=== PATIENT | male | born 1950 | race Caucasian/White ===

== ENCOUNTER → 2017-08-31 | Outpatient (REF) | payer MEDICARE ==
[2017-08-31 16:51] LABS: BASO # 0.1 10^3/uL (0.0-0.2); BASO % 1.1 % (0.0-1.0); EOS # 0.1 10^3/uL (0.0-0.50); EOS % 1.6 % (0.0-3.0); HEMATOCRIT 53.4 % (42.0-52.0); HEMOGLOBIN 17.8 g/dl (13.5-17.5); LYMPH # 2.3 10^3/uL (1.5-4.5); LYMPH % 28.5 % (24.0-44.0); MEAN CORPUSCULAR HEMOGLOBIN 33.5 pg (27.0-33.0); MEAN CORPUSCULAR HGB CONC 33.3 g/dl (32.0-36.5); MEAN CORPUSCULAR VOLUME 100.4 fl (80.0-96.0); MONO # 0.8 10^3/uL (0.0-0.8); MONO % 9.8 % (0.0-5.0); NEUTROPHILS # 4.6 10^3/uL (1.8-7.7); PLATELET COUNT, AUTOMATED 298 10^3/uL (150-450); RED BLOOD COUNT 5.32 10^6/uL (4.30-6.10); RED CELL DISTRIBUTION WIDTH 12.3 % (11.5-14.5); WHITE BLOOD COUNT 7.9 10^3/uL (4.0-10.0)
[2017-08-31 17:04] LABS: ESTIMATED AVERAGE GLUCOSE 108 MG/DL (60-110); HEMOGLOBIN A1c 5.4 %
[2017-08-31 17:13] LABS: ALBUMIN 3.8 GM/DL (3.2-5.2); ALBUMIN/GLOBULIN RATIO 0.97 (1.00-1.93); ALKALINE PHOSPHATASE 67 U/L (45-117); ALT/SGPT 29 U/L (12-78); ANION GAP 9 MEQ/L (8-16); AST/SGOT 15 U/L (7-37); BILIRUBIN,TOTAL 0.6 MG/DL (0.2-1.0); BLOOD UREA NITROGEN 12 MG/DL (7-18); CALCIUM LEVEL 9.2 MG/DL (8.8-10.2); CARBON DIOXIDE LEVEL 28 MEQ/L (21-32); CHLORIDE LEVEL 102 MEQ/L (98-107); CHOLESTEROL LEVEL 269 MG/DL (<200); CHOLESTEROL RISK RATIO 5.075 (<5); CREATININE FOR GFR 0.98 MG/DL (0.70-1.30); GLOMERULAR FILTRATION RATE > 60.0 (>49); GLUCOSE, FASTING 78 MG/DL (70-100); HDL CHOLESTEROL 53 MG/DL (>40); LDL CHOLESTEROL 155.2 MG/DL (<100); NON-HDL-C 216 MG/DL; POTASSIUM SERUM 4.8 MEQ/L (3.5-5.1); SODIUM LEVEL 139 MEQ/L (136-145); TOTAL PROTEIN 7.7 GM/DL (6.4-8.2); TRIGLYCERIDES LEVEL 304 MG/DL (<150)
== END ==
LOC: M SFHCLERA 10:13
DX: I10 Essential (primary) hypertension (principal); E66.9 Obesity, unspecified; Z72.0 Tobacco use; Z12.11 Encounter for screening for malignant neoplasm of colon
CPT/HCPCS: 84443

== ENCOUNTER → 2017-09-28 | Outpatient (REF) | payer MEDICARE ==
[2017-09-28 12:16] LABS: MAU/CREAT RATIO 7.9 MCG/MG (0.0-30.0)
== END ==
LOC: M SFHCLERA 11:22
DX: I10 Essential (primary) hypertension (principal)
CPT/HCPCS: 82043

== ENCOUNTER → 2018-08-18 | Outpatient (REF) | payer MEDICARE, OTHER ==
[2018-08-18 18:19] LABS: CHOLESTEROL RISK RATIO 3.362 (<5)
== END ==
LOC: M SFHCLERA 14:54
PROVIDERS: ATTEND Family Medicine
DX: E78.5 Hyperlipidemia, unspecified (principal)
CPT/HCPCS: 80061; G0463

== ENCOUNTER → 2018-08-25 | Outpatient (CLI) | payer MEDICARE ==
--- NOTE | 2018-08-25 10:38 | REP ---
ULTRASOUND ABDOMINAL AORTA: Real time sonographic evaluation of the abdominal aorta performed. The distal abdominal aorta could not be visualized due to overlying bowel gas, nor could the common iliac arteries. No aneurysm was seen at the proximal abdominal aorta just below the diaphragms which measures 2.5 cm in maximum AP dimension. There is also no evidence of aneurysm at the level of the renal arteries with AP diameter 2.1 cm. IMPRESSION: No sonographic evidence of aneurysm of the proximal abdominal aorta. However, distal abdominal aorta could not be visualized due to overlying bowel gas. Electronically Signed by Abdon Rivero MD 08/28/2018 07:02 P
--- NOTE | 2018-08-25 10:45 | REP ---
BILATERAL LOWER EXTREMITY DUPLEX DOPPLER ARTERIAL ULTRASOUND: Real-time ultrasound evaluation and duplex Doppler interrogation is performed of bilateral lower extremity arterial systems. There is diffuse calcific plaque bilaterally. The vessels are non compressible and BRAYAN could not be performed. There is elevated peak systolic velocity in the proximal aspect of the right superficial femoral artery suggesting mild stenosis. There is also a suggestion of mild stenosis of the left profunda artery and distal left superficial femoral artery. There is severe stenosis of the left tibioperoneal trunk with significantly elevated peak systolic velocity of 457 cm/s. There are diffuse triphasic waveforms noted except for biphasic waveforms in the distal right anterior and posterior tibial arteries and throughout the left anterior and posterior tibial arteries. Right Peak Left Peak Systolic Velocity Systolic velocity Common femoral artery 87.8 cm/s 108.0 cm/s Profunda 99.9 cm/s 132.0 cm/s Proximal SFA 203.0 cm/s 84.3 cm/s Mid SFA 96.0 cm/s 78.6 cm/s Distal SFA 89.4 cm/s 112.0 cm/s Popliteal 133.0 cm/s 65.4 cm/s Proximal PORTER 89.3 cm/s 60.0 cm/s Tibial peroneal trunk 98.8 cm/s 457.0 cm/s Proximal CITY ASSESSOR 66.6 cm/s 31.5 cm/s Distal CITY ASSESSOR 71.3 cm/s 35.6 cm/s Distal PORTER 30.7 cm/s 46.0 cm/s IMPRESSION: Suspect mild stenosis proximal right superficial femoral artery and left profunda and left distal superficial femoral artery. Severe stenosis left tibioperoneal trunk. Electronically Signed by Abdon Rivero MD 08/28/2018 07:04 P
== END ==
LOC: M RAD 07:27
PROVIDERS: ATTEND Family Medicine
DX: M79.605 Pain in left leg (principal); M79.604 Pain in right leg; Z13.6 Encounter for screening for cardiovascular disorders; I77.1 Stricture of artery

== ENCOUNTER → 2018-10-04 | Outpatient (CLI) | payer MEDICARE ==
[~2018-10-04] MED LIST: AMLO10TA5; ASPI81TA85 PO; HEPARIN 1,000 UNITS/ML 10ML VIAL (FOR RADIOLOGY& DIALYSIS ONLY) As Ordered ONE; ISOVUE-300 61% 50ML VIAL (Q9967) As Ordered ONE; LIDOCAINE 2% MDV 20 ML VIAL As Ordered ONE; LISI40TA; METO50TA7; MIDAZOLAM INJ 2 MG/2 ML VIAL (J2250) As Ordered ONE; ROSU5TAB5; fentaNYL 100 MCG/2 ML INJECTION (J3010) As Ordered ONE
[2018-10-04 07:11] LABS: HEMATOCRIT 48.5 % (42.0-52.0); MEAN CORPUSCULAR HEMOGLOBIN 32.5 pg (27.0-33.0); MEAN CORPUSCULAR VOLUME 98.4 fl (80.0-96.0); PLATELET COUNT, AUTOMATED 343 10^3/uL (150-450); RED BLOOD COUNT 4.93 10^6/uL (4.30-6.10); WHITE BLOOD COUNT 9.6 10^3/uL (4.0-10.0)
[2018-10-04 07:37] LABS: BLOOD UREA NITROGEN 17 MG/DL (7-18); CARBON DIOXIDE LEVEL 25 MEQ/L (21-32); CHLORIDE LEVEL 103 MEQ/L (98-107); CREATININE FOR GFR 1.01 MG/DL (0.70-1.30); GLOMERULAR FILTRATION RATE > 60.0 (>49); GLUCOSE, FASTING 91 MG/DL (70-100); POTASSIUM SERUM 6.3 MEQ/L (3.5-5.1); SODIUM LEVEL 137 MEQ/L (136-145)
--- NOTE | 2018-10-04 09:36 | ROOPDOC ---
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 Ultrasound-guided access left common femoral artery 2. Aortoiliofemoral arteriogram with right lower extremity runoff through selection of right superficial femoral artery 3. Angioplasty in the right superficial femoral artery with 6 x 100 [place] balloon 4. Angioplasty of the right popliteal artery with 6 x 100 [place] balloon 5. Selection arteriograms of the right anterior tibial artery and dorsal pedis arteries 6. 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 Completion arteriograms right lower extremity 8. Left lower extremity runoff arteriogram 9. Mynx closure left common femoral artery SURGEON: Kait Jones MD ANESTHESIA: 10 mL 1% lidocaine local anesthesia. Moderate intravenous conscious sedation was supervised by Dr. Jones. The patient was independently monitored by a registered nurse assigned at the Department of radiology using automated blood pressure, EKG, and pulse oximetry. The detailed conscious sedation record is permanently started in the hospital information system. The following is the conscious sedation record: Start time 07:40, stop time 08:59, Versed 1 mg IV, fentanyl 50 g IV. The patient tolerated sedation well with no complications. Contrast: Isovue 300, 56 mL. Heparin: 5000 units INDICATION FOR PROCEDURE: Mr. Vega is a very pleasant 67-year-old gentleman with atherosclerosis of the unga vessels and lifestyle limiting claudication. In addition to encouraging ambulation and smoking cessation, we discussed the options including the risks benefits and alternatives to an arteriogram and potential intervention. Despite findings on his noninvasive duplex arterial study suggesting greater left lower extremity arterial disease than right, the patient is more symptomatic on the right and therefore we have elected to proceed with the right lower extremity arteriogram and intervention first. After extensive counseling, informed consent was obtained. All questions were answered. INTERPRETATION: 1. The distal aorta, common iliac arteries, hypogastric's, and external iliac arteries are widely patent. 2. The common femoral vessels and profundus are widely patent. 3. The proximal right SFA has a 30% stenosis along the proximal 7 cm, with mild flow limitation. 20% residual stenosis present after angioplasty, but no flow limitation noted. No dissection or extravasation noted after angioplasty. 4. The mid distal right SFA is widely patent. 5. There is an 80% mid right popliteal stenosis focally, with some mild stenosis proximal to this throughout the popliteal artery. After angioplasty, there was less than 10% residual stenosis. Some contrast passed beneath the angioplasty plaque and out into a genicular branch, and this branch was not present on pre- angioplasty imaging. I do not see any flow-limiting dissection despite some contrast flowing behind the plaque. No other extravasation or embolization noted after angioplasty and flow was brisk. 6. The right tibioperoneal trunk and peroneal and posterior tibial arteries are widely patent and have good runoff to the foot. The posterior tibial arteries the main runoff to the foot. 7. The anterior tibial artery on the right occludes 2 cm from its origin and reconstitutes at the ankle with runoff into the dorsal pedis artery. We were successful to cross the chronic total occlusion and confirmed we are in the true lumen within the anterior tibial artery as well as the dorsal pedis artery with selection views. After angioplasty, we had a patent vessel with runoff to the foot, and no visible dissection, extravasation, or embolization. 8. On the left lower extremity, the common femoral artery, profunda, and SFA are patent with brisk flow. There is a focal 90-95% stenosis in the popliteal artery with some surrounding mild irregular plaque. The patient then has 3 vessel runoff, but has some focal areas of near occlusion in the proximal anterior tibial artery with distal reconstitution. The main runoff to the foot is a posterior tibial artery, but all 3 vessels are patent. PROCEDURE: The patient was brought to the angiographic suite in stable condition and placed supine on the fluoroscopic table. His bilateral groins were prepped and draped in a sterile fashion. A timeout was performed. Sedation was administered without claudication. An ultrasound was used to guide access to the left common femoral artery over the femoral head. A wire was passed through this access under fluoroscopic guidance and a micro-sheath was placed. Stiff Glidewire was used to access the suprarenal aorta and aorto iliofemoral arteriogram was performed. No significant was stenosis was noted in this area. We then went up and over the bifurcation with a stiff Glidewire an Omni flushed catheter. Over the wire the catheter was advanced into the distal femoral artery. 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 The other vessels are patent with mild plaque noted. Please see above interpretation. We then navigated R wire under fluoroscopy into the distal superficial femoral artery and placed a long 6 Wolof sheath up and over the bifurcation and flushed the sheath with saline. The proximal SFA was angiopl astied with a 6 x 100 [place] balloon, which is a little undersized for this vessel, but our goal was simply to smooth out the plaque and prevent any flow hesitation. After three-minute inflations, there was still 20% stenosis, but no limitation of flow. We then advanced the balloon across the popliteal artery and angioplastied for 3 minutes at a low atmosphere inflation. Following this, there is widely patent inflow through the popliteal artery with a little bit of flow. Behind the angioplasty plaque into a genicular branch. Since this was not flow- limiting and was filling a branch, we did not really angioplasty to try to eliminate that retro-plaque flow. It was not flow-limiting, and there was no extravasation. We then navigated the Glidewire into the origin of the anterior tibial artery. We attempted to cross this with an O35 [place] in the Glidewire, but we were only able to pass the [place] correction through the anterior tibial artery. We confirmed we are in the true lumen with a quick arteriogram, and then exchanged R wire for an O18 wire. We then exchanged the [place] for an O18 [place]. It was challenging, but eventually we were able to cross the entire anterior tibial artery and confirmed we're in the true lumen of the dorsal pedis artery with another quick arteriogram. We then angioplastied over the O18 wire with a 2 x 2 20 Aris balloon for three-minute inflations along the length of the vessel. Following this, there was still some irregular plaque within the vessel but it was patent with in-line flow to the foot. No dissections spasm embolization or extravasation were noted. With 3 vessel runoff to the foot, we concluded her procedure. We exchanged the sheath for short 6 Wolof sheath on the left. To prepare for next procedure on the other extremity, quick arteriogram was performed. The main findings on the left with a severe stenosis of the popliteal artery and some mild anterior tibial artery stenosis. We will address this on a separate procedure. We then removed the wire and deployed a minx closure device under fluoroscopic guidance the left common femoral artery. Following this, pressure was held for 10 minutes for good hemostasis. The patient was then transferred back to recovery in stable condition. ESTIMATED BLOOD LOSS: Approximately 5 mL. COMPLICATIONS: None PLAN: The patient will remain on bedrest for 4 hours postprocedure and then discharge home is hemodynamically stable and standard criteria are met. We will see him back in follow-up and plan a procedure for left lower extremity revascul arization in a few weeks. KAIT JONES MD Oct 04, 2018 09:36
[2018-10-04 12:51] VITALS: BP 176/94
== END ==
LOC: M IRPRO 06:41
PROVIDERS: ATTEND Surgery Vascular Surgery
DX: I70.213 Atherosclerosis of native arteries of extremities with intermittent claudication, bilateral legs (principal); I10 Essential (primary) hypertension; E78.5 Hyperlipidemia, unspecified; Z79.899 Other long term (current) drug therapy; Z79.82 Long term (current) use of aspirin
CPT/HCPCS: 37224; 37228; 75716; 75774; 80048; 85027; C1725; C1760; C1769; C1887; C1894; J2250; J3010; Q9967

== ENCOUNTER → 2018-10-05 | Outpatient (REF) | payer MEDICARE, OTHER ==
[~2018-10-05] MED LIST changes: -HEPARIN 1,000 UNITS/ML 10ML VIAL (FOR RADIOLOGY& DIALYSIS ONLY) As Ordered ONE; -ISOVUE-300 61% 50ML VIAL (Q9967) As Ordered ONE; -LIDOCAINE 2% MDV 20 ML VIAL As Ordered ONE; -MIDAZOLAM INJ 2 MG/2 ML VIAL (J2250) As Ordered ONE; -fentaNYL 100 MCG/2 ML INJECTION (J3010) As Ordered ONE
[2018-10-05 12:01] LABS: BLOOD UREA NITROGEN 13 MG/DL (7-18); CALCIUM LEVEL 9.6 MG/DL (8.8-10.2); CARBON DIOXIDE LEVEL 29 MEQ/L (21-32); CHLORIDE LEVEL 102 MEQ/L (98-107); CREATININE FOR GFR 0.99 MG/DL (0.70-1.30); GLOMERULAR FILTRATION RATE > 60.0 (>49); GLUCOSE, FASTING 89 MG/DL (70-100); POTASSIUM SERUM 4.7 MEQ/L (3.5-5.1); SODIUM LEVEL 137 MEQ/L (136-145)
== END ==
LOC: M SFHCLERA 09:41
PROVIDERS: ATTEND Family Medicine
DX: E87.5 Hyperkalemia (principal)

== ENCOUNTER → 2024-03-10 | Outpatient (REF) | payer MEDICARE, OTHER ==
[~2024-03-10] MED LIST changes: -AMLO10TA5; +AMLO1TAB25; -ASPI81TA85 PO; +ASPI81TA86 PO; -LISI40TA; +LISI40TA4; +ROSU5TAB49; -ROSU5TAB5
[2024-03-10 13:51] LABS: CREATININE, URINE 167.9 MG/DL
[2024-03-10 13:52] LABS: MAU/CREAT RATIO 54.1 MCG/MG (0.0-30.0)
[2024-03-10 18:37] LABS: BASO # 0.1 10^3/uL (0.0-0.2); BASO % 1.2 % (0.0-1.0); EOS # 0.1 10^3/uL (0.0-0.5); EOS % 2.1 % (0.0-3.0); HEMATOCRIT 56.9 % (42.0-52.0); HEMOGLOBIN 18.9 g/dl (13.5-17.5); LYMPH # 1.7 10^3/uL (1.5-5.0); LYMPH % 24.4 % (24.0-44.0); MEAN CORPUSCULAR HEMOGLOBIN 33.9 pg (27.0-33.0); MEAN CORPUSCULAR HGB CONC 33.2 g/dl (32.0-36.5); MONO # 0.6 10^3/uL (0.0-0.8); MONO % 8.1 % (2.0-8.0); NEUTROPHILS # 4.3 10^3/uL (1.5-8.5); NEUTROPHILS % 63.6 % (36.0-66.0); PLATELET COUNT, AUTOMATED 265 10^3/uL (150-450); PSA SCREENING 1.25 NG/ML (< 4.00); RED BLOOD COUNT 5.58 10^6/uL (4.30-6.10); WHITE BLOOD COUNT 6.8 10^3/uL (4.0-10.0)
[2024-03-10 18:41] LABS: ALBUMIN 3.9 G/DL (3.2-5.2); ALKALINE PHOSPHATASE 80 U/L (40-129); ALT/SGPT 21 U/L (7.0-40); AST/SGOT 17 U/L (<34); BILIRUBIN,TOTAL 0.7 MG/DL (0.3-1.2); BLOOD UREA NITROGEN 10 MG/DL (9-23); CALCIUM LEVEL 9.8 MG/DL (8.3-10.6); CARBON DIOXIDE LEVEL 28 MMOL/L (20-31); CHLORIDE LEVEL 101 MMOL/L (98-107); CHOLESTEROL LEVEL 285 MG/DL (<200); CHOLESTEROL RISK RATIO 5.97 (<5); CREATININE FOR GFR 0.85 MG/DL (0.70-1.30); GLOMERULAR FILTRATION RATE > 60.0 (>42); GLUCOSE, FASTING 79 MG/DL (74-106); HDL CHOLESTEROL 47.7 MG/DL (>40); LDL CHOLESTEROL 174.1 MG/DL (<100); NON-HDL-C 237.3 MG/DL; POTASSIUM SERUM 5.9 MMOL/L (3.5-5.1); SODIUM LEVEL 136 MMOL/L (136-145); THYROID STIMULATING HORMONE 2.484 uIU/ML (0.55-4.78); TOTAL PROTEIN 8.2 G/DL (5.7-8.2); TRIGLYCERIDES LEVEL 316 MG/DL (<150)
[2024-03-10 18:43] LABS: TOTAL 25(OH) VITAMIN D 7.5 NG/ML (20.0-100.0); VITAMIN B12 LEVEL 264 PG/ML (211-911)
[2024-03-10 18:53] LABS: HEMOGLOBIN A1c 4.9 % (4.0-6.0)
[2024-03-10 19:15] LABS: HEPATITIS C VIRUS ABY INDEX < 0.02 INDEX (<0.8); HIV 1&2 SCREEN NEGATIVE (NEGATIVE)
== END ==
LOC: M LAB REF 12:40
PROVIDERS: ATTEND Physician Assistant
DX: E55.9 Vitamin D deficiency, unspecified (principal); I10 Essential (primary) hypertension; E66.9 Obesity, unspecified; Z12.5 Encounter for screening for malignant neoplasm of prostate; Z72.89 Other problems related to lifestyle; Z79.899 Other long term (current) drug therapy; Z11.3 Encounter for screening for infections with a predominantly sexual mode of transmission
CPT/HCPCS: 80053; 80061; 82043; 82306; 82607; 82746; 83036; 84443; 85025; 86780; 86803; 87389; G0103

== ENCOUNTER → 2024-03-22 | Outpatient (REF) | payer MEDICARE ==
[2024-03-22 17:35] LABS: BLOOD UREA NITROGEN 9 MG/DL (9-23); CALCIUM LEVEL 9.8 MG/DL (8.3-10.6); CARBON DIOXIDE LEVEL 29 MMOL/L (20-31); CHLORIDE LEVEL 102 MMOL/L (98-107); CREATININE FOR GFR 0.88 MG/DL (0.70-1.30); GLOMERULAR FILTRATION RATE > 60.0 (>42); GLUCOSE, FASTING 90 MG/DL (74-106); POTASSIUM SERUM 5.2 MMOL/L (3.5-5.1); SODIUM LEVEL 135 MMOL/L (136-145)
== END ==
LOC: M LAB REF 16:40
PROVIDERS: ATTEND Physician Assistant
DX: I10 Essential (primary) hypertension (principal)

== ENCOUNTER → 2024-04-13 | Outpatient (CLI) | payer MEDICARE ==
[2024-04-13 16:28] LABS: FREE T4 1.03 NG/DL (0.89-1.76); THYROID STIMULATING HORMONE 2.222 uIU/ML (0.55-4.78)
[2024-04-13 16:29] LABS: FOLATE 12.08 NG/ML (>5.4)
== END ==
LOC: M LAB 14:56
PROVIDERS: ATTEND Physician Assistant
DX: R25.1 Tremor, unspecified (principal)

== ENCOUNTER → 2024-08-28 | Outpatient (CLI) | payer MEDICARE ==
[~2024-08-28] MED LIST changes: +LISI40TA10; -LISI40TA4
[2024-08-28 12:01] LABS: VITAMIN B12 LEVEL 307.0 PG/ML (211-911)
== END ==
LOC: M LAB 09:48
PROVIDERS: ATTEND Psychiatry & Neurology Neurology
DX: E53.8 Deficiency of other specified B group vitamins (principal); E53.1 Pyridoxine deficiency; R25.1 Tremor, unspecified; R41.89 Other symptoms and signs involving cognitive functions and awareness

== ENCOUNTER → 2024-12-13 | Outpatient (CLI) | payer MEDICARE ==
[2024-12-13 11:31] LABS: BASO # 0.1 10^3/uL (0.0-0.2); BASO % 1.0 % (0.0-1.0); EOS # 0.4 10^3/uL (0.0-0.5); EOS % 3.5 % (0.0-3.0); LYMPH # 2.1 10^3/uL (1.5-5.0); LYMPH % 20.0 % (24.0-44.0); MONO # 0.9 10^3/uL (0.0-0.8); MONO % 8.1 % (2.0-8.0); NEUTROPHILS # 7.0 10^3/uL (1.5-8.5); NEUTROPHILS % 66.5 % (36.0-66.0); PLATELET COUNT, AUTOMATED 351 10^3/uL (150-450)
[2024-12-13 12:02] LABS: ALT/SGPT 24.0 U/L (7.0-40); AST/SGOT 21.0 U/L (<34); CALCIUM LEVEL 9.3 MG/DL (8.3-10.6); CARBON DIOXIDE LEVEL 28.0 MMOL/L (20-31); CHLORIDE LEVEL 95.0 MMOL/L (98-107); CHOLESTEROL LEVEL 188.0 MG/DL (<200); CHOLESTEROL RISK RATIO 3.42 (<5); CREATININE FOR GFR 0.88 MG/DL (0.70-1.30); GLOMERULAR FILTRATION RATE 89.7 (>42); LDL CHOLESTEROL 94.1 MG/DL (<100); NON-HDL-C 133.1 MG/DL; POTASSIUM SERUM 4.3 MMOL/L (3.5-5.1); SODIUM LEVEL 135.0 MMOL/L (136-145); TRIGLYCERIDES LEVEL 195.0 MG/DL (<150)
== END ==
LOC: M LAB 09:53
PROVIDERS: ATTEND Psychiatry & Neurology Neurology
DX: G45.9 Transient cerebral ischemic attack, unspecified (principal); I77.1 Stricture of artery